=== PATIENT | female | born 1980 | race Caucasian/White ===

== ENCOUNTER 2017-07-14 00:43 | Emergency (ER) | payer BC ==
[2017-07-14 00:46] VITALS: BP 156/95; PULSE 86; RESP 18; TEMP 98.6; O2SAT 100
[2017-07-14] MEDS ORDERED: LIDOCAINE HCL 1% 20 ML VIAL INFIL ONE (01:15)
[2017-07-14] MEDS ORDERED: HYDR-3533 PO (01:30)
[2017-07-14] MEDS ORDERED: IBUP800T23 PO (01:30)
[2017-07-14] MEDS ORDERED: CEPH-460 PO (01:30)
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
[2017-07-14] MEDS ORDERED: IBUPROFEN 800 MG TAB PO ONE (02:00)
== END 2017-07-14 02:00 | disposition home or self-care (01) ==
LOC: NEPD 00:43
DX: S91.201A Unspecified open wound of right great toe with damage to nail, initial encounter (principal); W20.8XXA Other cause of strike by thrown, projected or falling object, initial encounter
CPT/HCPCS: 11730